=== PATIENT | female | born 1950 | race Caucasian/White ===

== ENCOUNTER 2017-07-07 01:16 | Inpatient (IN) | payer OTHER ==
[~2017-07-07] VITALS: Ht 172.7 cm; Wt 91.0 kg
[2017-07-07 01:58] LABS: BASOPHILS # (AUTO) 0.08 K/uL (0.00-0.20); BASOPHILS % (AUTO) 0.9 % (0.0-2.0); EOSINOPHILS % (AUTO) 2.35 % (1.0-6.0); HEMATOCRIT 49.2 % (36-46); LYMPHOCYTES # (AUTO) 2.3 K/uL (1.0-4.8); LYMPHOCYTES % (AUTO) 27.4 % (22.0-44.0); MEAN CORPUSCULAR HEMOGLOBIN 30.9 pg (26.0-34.0); MEAN CORPUSCULAR HGB CONC 32.6 G/dL (31.0-37.0); MEAN CORPUSCULAR VOLUME 95 fL (80-100); MONOCYTES # (AUTO) 0.9 K/uL (0.1-1.0); MONOCYTES % (AUTO) 10.1 % (2.0-9.0); NEUTROPHILS % (AUTO) 59.3 % (40.0-70.0); PLATELET COUNT (AUTO) 202 K/uL (150-450); RED CELL DISTRIBUTION WIDTH 15.8 % (11.5-14.5)
[2017-07-07 02:06] LABS: CREATININE 0.93 mg/dL (0.60-1.30); POTASSIUM 3.5 mmol/L (3.5-5.1)
[2017-07-07 02:12] LABS: ALBUMIN 3.2 g/dL (3.4-5.0); BILIRUBIN,TOTAL 0.6 mg/dL (0.1-1.0); TOTAL PROTEIN, SERUM 7.1 g/dL (6.4-8.2)
[2017-07-07] MEDS ORDERED: HALOPERIDOL LACTATE 5 MG/ML VIAL IVP ONE (02:30)
[2017-07-07] MEDS ORDERED: LORazepam 2 MG/ML VIAL IVP ONE (02:30)
[2017-07-07] MEDS ORDERED: DiphenhydrAMINE HCL 50 MG/ML VIAL IVP ONE (02:30)
[2017-07-07 02:58] LABS: AMPHET/METH SCREEN,URINE NEGATIVE (NEGATIVE); BARBITURATE SCREEN, URINE NEGATIVE (NEGATIVE); BENZODIAZEPINES SCREEN,URINE NEGATIVE (NEGATIVE); CANNABINOID SCREEN,URINE NEGATIVE (NEGATIVE); COCAINE SCREEN,URINE NEGATIVE (NEGATIVE); METHADONE SCREEN, URINE NEGATIVE (NEGATIVE); OPIATE SCREEN,URINE NEGATIVE (NEGATIVE)
[2017-07-07 03:00] LABS: PHENCYCLIDINE SCREEN,URINE NEGATIVE (NEGATIVE)
[2017-07-07] MEDS ORDERED: OLANZapine 5 MG RAPDIS TABLET PO PRN (03:00)
[2017-07-07 03:34] LABS: APPEARANCE,URINE CLOUDY (CLEAR); GLUCOSE, URINE (UA) NEGATIVE (NEGATIVE); KETONES,URINE >=80 mg/dL (NEGATIVE); LEUKOCYTE ESTERASE ,URINE SMALL (NEGATIVE); NITRATE,URINE NEGATIVE (NEGATIVE); OCCULT BLOOD,URINE NEGATIVE (NEGATIVE); PROTEIN,URINE NEGATIVE (NEGATIVE); UROBILINOGEN,URINE 0.2 mg/dL (<=1.0)
[2017-07-07 03:35] LABS: BILIRUBIN,URINE PRELIM. POSITIVE (NEGATIVE)
[2017-07-07 03:45] LABS: CHOL/HDL RATIO 4.1 (3.9-5.7); THYROID STIMULATING HORMONE 5.28 uIU/mL (0.36-3.74)
[2017-07-07 03:52] LABS: BACTERIA,URINE Rare /HPF (None Seen); RBC,URINE 0-2 /HPF (0-2); SQUAMOUS EPITHELIAL CELL,UR Few /LPF (None Seen)
[2017-07-07 03:56] VITALS: BP 119/79
[2017-07-07] MEDS: LEVOFLOXACIN 250 MG TABLET PO SCH (08:06)
[2017-07-07 09:33] VITALS: BP 100/56
[2017-07-07] MEDS ORDERED: GuaiFENesin/D-METHORPHAN [SUGAR-FREE] 200-20MG/10 ML SYRUP UDCUP PO PRN (11:00)
[2017-07-07] MEDS ORDERED: MAG HYDROX/AL HYDROX/SIMETH ES 30 ML SUSPENSION UDCUP PO PRN (11:00)
[2017-07-07] MEDS ORDERED: MAGNESIUM HYDROXIDE SUSPENSION 30 ML UDCUP PO PRN (11:00)
[2017-07-07] MEDS ORDERED: TUBERCULIN, PURIFIED PROTEIN DERIVATIVE 5 TU/0.1 ML SYG ID ONE (11:00)
[2017-07-07] MEDS ORDERED: HydrOXYzine PAMOATE 50 MG CAPSULE PO PRN (11:00)
[2017-07-07] MEDS ORDERED: LOPERAMIDE HCL 2 MG CAPSULE PO PRN (11:00)
[2017-07-07] MEDS ORDERED: PROMETHAZINE HCL 25 MG TABLET PO PRN (11:00)
[2017-07-07] MEDS: THIAMINE HCL 100 MG TABLET PO SCH (16:58)
[2017-07-07] MEDS: LORazepam 2 MG TABLET PO PRN (18:27)
[2017-07-07 19:00] VITALS: BP 103/58
[2017-07-07] MEDS: MIRTAZAPINE 15 MG TABLET PO SCH (20:24)
[2017-07-07] MEDS ORDERED: OLANZapine 5 MG RAPDIS TABLET PO SCH (21:00)
[2017-07-07] MEDS: ZOLPIDEM TARTRATE 10 MG TABLET PO PRN (21:51)
[2017-07-08 02:57] VITALS: BP 124/79
[2017-07-08 08:05] VITALS: BP 99/59
[2017-07-08] MEDS: LEVOFLOXACIN 250 MG TABLET PO SCH (08:47)
[2017-07-08] MEDS: FLUoxetine HCL 20 MG CAPSULE PO SCH (08:47)
[2017-07-08] MEDS: FOLIC ACID 1 MG TABLET PO SCH (08:47)
[2017-07-08] MEDS: THIAMINE HCL 100 MG TABLET PO SCH ×2 (08:48→16:43)
[2017-07-08] MEDS: MULTIVITAMINS WITH MINERALS, THERAPEUTIC TABLET PO SCH (08:48)
[2017-07-08 14:35] VITALS: BP 106/75
[2017-07-08 17:20] VITALS: BP 100/63
[2017-07-08] MEDS: MIRTAZAPINE 15 MG TABLET PO SCH (20:23)
[2017-07-08] MEDS ORDERED: OLANZapine 10 MG RAPDIS TABLET PO SCH (21:00)
[2017-07-08] MEDS: ZOLPIDEM TARTRATE 10 MG TABLET PO PRN (22:08)
[2017-07-09] MEDS: MULTIVITAMINS WITH MINERALS, THERAPEUTIC TABLET PO SCH (08:28)
[2017-07-09] MEDS: THIAMINE HCL 100 MG TABLET PO SCH ×2 (08:28→16:33)
[2017-07-09] MEDS: FLUoxetine HCL 20 MG CAPSULE PO SCH (08:29)
[2017-07-09] MEDS: LEVOFLOXACIN 250 MG TABLET PO SCH (08:29)
[2017-07-09] MEDS: FOLIC ACID 1 MG TABLET PO SCH (08:29)
[2017-07-09 08:50] VITALS: BP 110/73
[2017-07-09] MEDS ORDERED: PALIPERIDONE PALMITATE 234 MG/1.5 ML SYRINGE IM ONE (15:00)
[2017-07-09] MEDS ORDERED: PALIPERIDONE 3 MG ER TABLET PO PRN (15:00)
[2017-07-09 16:00] VITALS: BP 111/61
[2017-07-09] MEDS ORDERED: PALIPERIDONE 3 MG ER TABLET PO SCH (21:00)
[2017-07-09] MEDS: MIRTAZAPINE 15 MG TABLET PO SCH (21:51)
[2017-07-09] MEDS: ZOLPIDEM TARTRATE 10 MG TABLET PO PRN (21:52)
[2017-07-10 06:31] VITALS: BP 106/61
[2017-07-10] MEDS: MULTIVITAMINS WITH MINERALS, THERAPEUTIC TABLET PO SCH (08:42)
[2017-07-10] MEDS: LEVOFLOXACIN 250 MG TABLET PO SCH (08:43)
[2017-07-10] MEDS: THIAMINE HCL 100 MG TABLET PO SCH ×2 (08:43→16:25)
[2017-07-10] MEDS: FLUoxetine HCL 20 MG CAPSULE PO SCH (08:43)
[2017-07-10] MEDS: FOLIC ACID 1 MG TABLET PO SCH (08:44)
[2017-07-10 08:46] VITALS: BP 115/67
[2017-07-10 17:00] VITALS: BP 103/61
[2017-07-10] MEDS: MIRTAZAPINE 15 MG TABLET PO SCH (20:24)
[2017-07-10] MEDS: ZOLPIDEM TARTRATE 10 MG TABLET PO PRN (21:51)
[2017-07-11 06:40] VITALS: BP 104/55
[2017-07-11] MEDS: MULTIVITAMINS WITH MINERALS, THERAPEUTIC TABLET PO SCH (09:45)
[2017-07-11] MEDS: FOLIC ACID 1 MG TABLET PO SCH (09:45)
[2017-07-11] MEDS: LEVOFLOXACIN 250 MG TABLET PO SCH (09:46)
[2017-07-11] MEDS: FLUoxetine HCL 20 MG CAPSULE PO SCH (09:46)
[2017-07-11] MEDS: THIAMINE HCL 100 MG TABLET PO SCH ×2 (09:46→16:25)
[2017-07-11 11:07] VITALS: BP 109/73
[2017-07-11] MEDS: LORazepam 2 MG TABLET PO PRN (12:25)
[2017-07-11 17:15] VITALS: BP 110/65
[2017-07-11] MEDS: MIRTAZAPINE 15 MG TABLET PO SCH (20:23)
[2017-07-11] MEDS: ZOLPIDEM TARTRATE 10 MG TABLET PO PRN (21:45)
[2017-07-12] MEDS: FOLIC ACID 1 MG TABLET PO SCH (08:49)
[2017-07-12] MEDS: MULTIVITAMINS WITH MINERALS, THERAPEUTIC TABLET PO SCH (08:49)
[2017-07-12] MEDS: THIAMINE HCL 100 MG TABLET PO SCH ×2 (08:49→15:52)
[2017-07-12] MEDS: FLUoxetine HCL 20 MG CAPSULE PO SCH (08:49)
[2017-07-12 09:50] VITALS: BP 130/81
[2017-07-12] MEDS: LORazepam 2 MG TABLET PO PRN ×2 (12:42→17:31)
[2017-07-12 19:35] VITALS: BP 111/65
[2017-07-12] MEDS: MIRTAZAPINE 15 MG TABLET PO SCH (20:09)
[2017-07-12] MEDS: ZOLPIDEM TARTRATE 10 MG TABLET PO PRN (21:37)
[2017-07-13] MEDS ORDERED: PALIPERIDONE PALMITATE 156 MG/ML SYRINGE IM ONE (09:00)
[2017-07-13] MEDS: MULTIVITAMINS WITH MINERALS, THERAPEUTIC TABLET PO SCH (09:15)
[2017-07-13] MEDS: THIAMINE HCL 100 MG TABLET PO SCH ×2 (09:15→16:45)
[2017-07-13] MEDS: FLUoxetine HCL 20 MG CAPSULE PO SCH (09:15)
[2017-07-13] MEDS: FOLIC ACID 1 MG TABLET PO SCH (09:15)
[2017-07-13] MEDS: LORazepam 2 MG TABLET PO PRN ×2 (09:54→18:12)
[2017-07-13 10:29] VITALS: BP 140/81
[2017-07-13 16:30] VITALS: BP 112/60
[2017-07-13] MEDS: MIRTAZAPINE 15 MG TABLET PO SCH (21:12)
[2017-07-13] MEDS: ZOLPIDEM TARTRATE 10 MG TABLET PO PRN (22:06)
[2017-07-14 09:37] VITALS: BP 108/55
[2017-07-14] MEDS: MULTIVITAMINS WITH MINERALS, THERAPEUTIC TABLET PO SCH (12:11)
[2017-07-14] MEDS: FLUoxetine HCL 20 MG CAPSULE PO SCH (12:12)
[2017-07-14] MEDS: FOLIC ACID 1 MG TABLET PO SCH (12:12)
[2017-07-14] MEDS: THIAMINE HCL 100 MG TABLET PO SCH ×2 (12:12→16:04)
[2017-07-14] MEDS: LORazepam 2 MG TABLET PO PRN ×2 (14:06→18:38)
[2017-07-14 19:47] VITALS: BP 109/66
[2017-07-14] MEDS: MIRTAZAPINE 30 MG TABLET PO SCH (20:35)
[2017-07-14] MEDS: ZOLPIDEM TARTRATE 10 MG TABLET PO PRN (21:55)
[2017-07-15] MEDS: FLUoxetine HCL 20 MG CAPSULE PO SCH (08:21)
[2017-07-15] MEDS: THIAMINE HCL 100 MG TABLET PO SCH ×2 (08:21→16:50)
[2017-07-15] MEDS: MULTIVITAMINS WITH MINERALS, THERAPEUTIC TABLET PO SCH (08:21)
[2017-07-15] MEDS: FOLIC ACID 1 MG TABLET PO SCH (08:21)
[2017-07-15 09:25] VITALS: BP 166/92
[2017-07-15] MEDS: LORazepam 2 MG TABLET PO PRN (11:40)
[2017-07-15] MEDS ORDERED: GABAPENTIN 300 MG CAPSULE PO PRN (13:30)
[2017-07-15] MEDS: GABAPENTIN 300 MG CAPSULE PO SCH ×2 (16:50→21:00)
[2017-07-15 17:07] VITALS: BP 125/80
[2017-07-15] MEDS: MIRTAZAPINE 30 MG TABLET PO SCH (21:00)
[2017-07-15] MEDS: ZOLPIDEM TARTRATE 10 MG TABLET PO PRN (21:52)
[2017-07-16] VITALS (14 sets, daily range): BP systolic 109–153; BP diastolic 70–97
[2017-07-16] MEDS: FLUoxetine HCL 20 MG CAPSULE PO SCH (09:20)
[2017-07-16] MEDS: FOLIC ACID 1 MG TABLET PO SCH (09:20)
[2017-07-16] MEDS: MULTIVITAMINS WITH MINERALS, THERAPEUTIC TABLET PO SCH (09:21)
[2017-07-16] MEDS: GABAPENTIN 300 MG CAPSULE PO SCH ×3 (09:21→16:58)
[2017-07-16] MEDS: THIAMINE HCL 100 MG TABLET PO SCH ×2 (09:21→16:58)
[2017-07-16] MEDS: ACETAMINOPHEN 325 MG TABLET PO PRN ×3 (10:06→20:36)
[2017-07-16] MEDS ORDERED: PALI234D IM (11:05)
[2017-07-16] MEDS ORDERED: FLUO-191 PO (11:05)
[2017-07-16] MEDS ORDERED: GABA-531 PO (16:22)
[2017-07-16] MEDS ORDERED: HYD25 PO (16:22)
[2017-07-16] MEDS ORDERED: GABAPENTIN 300 MG CAPSULE PO PRN (17:30)
[2017-07-16] MEDS: HydrOXYzine HCL 25 MG TABLET PO SCH (17:31)
[2017-07-16] MEDS ORDERED: MIRTAZAPINE 30 MG TABLET PO SCH (21:00)
[2017-07-16] MEDS: ZOLPIDEM TARTRATE 10 MG TABLET PO PRN (21:50)
[2017-07-17] MEDS: ACETAMINOPHEN 325 MG TABLET PO PRN (05:35)
[2017-07-17 05:40] VITALS: BP 132/76
[2017-07-17] MEDS: GABAPENTIN 300 MG CAPSULE PO SCH (07:06)
[2017-07-17] MEDS: HydrOXYzine HCL 25 MG TABLET PO SCH (07:07)
[2017-07-17] MEDS ORDERED: FLUoxetine HCL 20 MG CAPSULE PO SCH (09:00)
[2017-07-17 10:05] VITALS: BP 124/70
[2017-07-17] MEDS: FOLIC ACID 1 MG TABLET PO SCH (10:16)
[2017-07-17] MEDS: THIAMINE HCL 100 MG TABLET PO SCH (10:16)
[2017-07-17] MEDS: MULTIVITAMINS WITH MINERALS, THERAPEUTIC TABLET PO SCH (10:16)
[2017-07-17] MEDS ORDERED: MIRT15 PO (10:23)
[2017-07-17] MEDS ORDERED: MIRTAZAPINE 15 MG TABLET PO SCH (21:00)
== END 2017-07-17 11:20 | disposition home or self-care (01) | DRG 885 ==
LOC: EMS 01:17 → 3EX 03:21
PROVIDERS: ADMIT Psychiatry & Neurology Psychiatry; ATTEND Psychiatry & Neurology Psychiatry
PROC: 0CQ1XZZ Repair Lower Lip, External Approach (ICD-10-PCS; principal; 2017-07-16)
DX: F33.9 Major depressive disorder, recurrent, unspecified (principal); E03.9 Hypothyroidism, unspecified; Z91.19 Patient's noncompliance with other medical treatment and regimen; S01.511A Laceration without foreign body of lip, initial encounter; S00.33XA Contusion of nose, initial encounter; N39.0 Urinary tract infection, site not specified; W18.30XA Fall on same level, unspecified, initial encounter; F41.1 Generalized anxiety disorder; Y93.89 Activity, other specified; Y92.89 Other specified places as the place of occurrence of the external cause
CPT/HCPCS: 70140; 84443; 93005; 96374; 96375; 99285; G0480; J1200; J1630; J2060

== ENCOUNTER 2025-02-23 15:20 | Inpatient (IN) | payer MEDICARE, MEDICAID ==
[~2025-02-23] VITALS: Ht 172.7 cm; Wt 91.9 kg
[~2025-02-23 15:20] MED LIST: ALEN70TA65 PO; AMLO2.5T96 PO; ATOR40TA28 PO; BUDE10.26 IH; DEUT12TA PO; DIVA-112 PO; LOXA25CA13 PO; METF-1211 PO; METO25 PO; MULT-711 PO; QUET200T PO; ROPI2TAB26 PO; TRAZ-257 PO
[2025-02-23 15:59] LABS: PLATELET COUNT (AUTO) 280 K/uL (150-450); RED BLOOD CELL COUNT(AUTO) 4.27 MIL/uL (4.00-5.20); RED CELL DISTRIBUTION WIDTH 15.8 % (11.5-14.5); WHITE BLOOD COUNT (AUTO) 10.0 K/uL (4.5-11.0)
[2025-02-23 16:07] LABS: CALCIUM, TOTAL 8.7 mg/dL (8.8-10.5); CREATININE 0.54 mg/dL (0.60-1.30); GLOMERULAR FILTR. RATE CALC > 60 mL/min (>60); GLUCOSE,RANDOM 94 mg/dL (70-110); SODIUM SERUM 138 mmol/L (136-145); UREA NITROGEN, BLOOD 9 mg/dL (7-18)
[2025-02-23 16:13] LABS: ALCOHOL, BLOOD (SERUM) < 3 mg/dL (0-10)
[2025-02-23 16:16] LABS: TROPONIN I-HIGH SENSITIVITY 4 ng/L (<51)
[2025-02-23 16:17] LABS: ASPARTATE AMINOTRANSFERASE 42 U/L (15-37); TOTAL PROTEIN, SERUM 6.6 g/dL (6.4-8.2)
[2025-02-23 16:52] LABS: COVID AG,FIA SOURCE NASAL SWAB
[2025-02-23 17:11] LABS: SARS-COV2 (COVID) ANTIGEN,FIA Negative (Negative)
[2025-02-23 17:12] LABS: INFLUENZA TYPE A NEGATIVE FOR TYPE A (NEGATIVE); INFLUENZA TYPE B NEGATIVE FOR TYPE B (NEGATIVE)
[2025-02-23 18:57] VITALS: PULSE 64; RESP 24; O2SAT 97
[2025-02-23] MEDS: ALBUTEROL SULFATE 2.5 MG/0.5 ML NEB SOLUTION NEB ONE (18:57)
[2025-02-23] MEDS: IPRATROPIUM BROMIDE 0.5 MG/2.5 ML NEB SOLUTION NEB ONE (18:57)
[2025-02-23 19:12] VITALS: PULSE 61; RESP 22; O2SAT 100
[2025-02-23] MEDS ORDERED: MAGNESIUM HYDROXIDE SUSPENSION 30 ML UDCUP PO PRN (21:00)
[2025-02-23] MEDS ORDERED: ZOLPIDEM TARTRATE 5 MG TABLET PO PRN (21:00)
[2025-02-23] MEDS ORDERED: BISACODYL 10 MG RECTAL RECTAL SUPPOSITORY PR PRN (21:00)
[2025-02-23] MEDS ORDERED: ACETAMINOPHEN 325 MG TABLET PO PRN (21:00)
[2025-02-23] MEDS ORDERED: MORPHINE SULFATE 2 MG/ML SYRINGE IVP PRN (21:00)
[2025-02-23] MEDS ORDERED: ONDANSETRON HCL 4 MG/2 ML VIAL IVP PRN (21:00)
[2025-02-23] MEDS: LOXAPINE SUCCINATE 25 MG CAPSULE PO SCH (21:42)
[2025-02-23] MEDS: DIVALPROEX SODIUM 500 MG DR TABLET PO SCH (21:42)
[2025-02-23 22:01] LABS: APPEARANCE,URINE CLEAR (CLEAR); GLUCOSE, URINE (UA) NEGATIVE (NEGATIVE); LEUKOCYTE ESTERASE ,URINE NEGATIVE (NEGATIVE); NITRATE,URINE NEGATIVE (NEGATIVE); OCCULT BLOOD,URINE NEGATIVE (NEGATIVE); PH,URINE DRUG SCREEN 5.5 (5.0-8.0); SPECIFIC GRAVITIY, URINE 1.009 (1.003-1.030)
[2025-02-23 22:08] LABS: AMPHET/METH SCREEN,URINE NEGATIVE (NEGATIVE); BARBITURATE SCREEN, URINE NEGATIVE (NEGATIVE); CANNABINOID SCREEN,URINE NEGATIVE (NEGATIVE); COCAINE SCREEN,URINE NEGATIVE (NEGATIVE); METHADONE SCREEN, URINE NEGATIVE (NEGATIVE)
[2025-02-23 22:10] LABS: ALCOHOL, URINE DRUG SCREEN NEGATIVE (NEGATIVE)
[2025-02-23 22:17] VITALS: BP 124/58; PULSE 75; RESP 18; TEMP 98.3; O2SAT 97
[2025-02-23] MEDS ORDERED: LORA0.5T20 PO (22:26)
[2025-02-23] MEDS ORDERED: ACET-66 PO (22:26)
[2025-02-23] MEDS ORDERED: PRED5TAB2 PO (22:26)
[2025-02-23] MEDS ORDERED: TRAZ-184 PO (22:26)
[2025-02-23] MEDS ORDERED: PERCT PO (22:30)
[2025-02-23] MEDS ORDERED: ROPI2TAB26 PO (22:34)
[2025-02-23] MEDS: DOCUSATE SODIUM 100 MG CAPSULE PO SCH (22:47)
[2025-02-23] MEDS: HEPARIN SODIUM,PORCINE 5,000 UNITS/ML VIAL SQ SCH (22:53)
[2025-02-23] MEDS: HYDROCODONE/ACETAMINOPHEN 5-325 MG TABLET PO PRN (22:54)
[2025-02-24] MEDS ORDERED: LORA0.5T20 PO (00:43)
[2025-02-24] MEDS: FLUTICASONE/VILANTEROL 200-25 MCG/INH INHALER [14] IH SCH (08:54)
[2025-02-24] MEDS: ATORVASTATIN CALCIUM 40 MG TABLET PO SCH (08:55)
[2025-02-24 08:56] VITALS: BP 109/50; PULSE 83; RESP 18; TEMP 98.1; O2SAT 100
[2025-02-24] MEDS: PANTOPRAZOLE SODIUM 40 MG DR TABLET PO SCH (08:56)
[2025-02-24] MEDS ORDERED: METOPROLOL TARTRATE 25 MG TABLET PO SCH (09:00)
[2025-02-24] MEDS ORDERED: ALBUTEROL SULFATE 2.5 MG/0.5 ML NEB SOLUTION NEB PRN (10:15)
[2025-02-24] MEDS ORDERED: IPRATROPIUM BROMIDE 0.5 MG/2.5 ML NEB SOLUTION NEB PRN (10:15)
[2025-02-24] MEDS: DEXTROSE 50%-WATER 25 GM/50 ML SYRINGE IVP PRN (11:19)
[2025-02-24 15:51] VITALS: BP 134/65; PULSE 84; RESP 18; TEMP 99.1; O2SAT 100
[2025-02-24 16:11] LABS: GLUCOMETER DEV NAME(LOC) 6N.1C; GLUCOSE,POINT OF CARE 62 MG/DL (70-110)
[2025-02-24 16:11] LABS: GLUCOMETER DEV NAME(LOC) 6N.1C; GLUCOSE,POINT OF CARE 106 MG/DL (70-110)
[2025-02-24] MEDS: DEXTROSE 5%-0.45% SODIUM CHL 1,000 ML IV ONE (18:23)
[2025-02-24 19:01] LABS: GLUCOMETER DEV NAME(LOC) 4E.2; GLUCOSE,POINT OF CARE 67 MG/DL (70-110)
[2025-02-24 20:01] LABS: GLUCOMETER DEV NAME(LOC) 4E.2; GLUCOSE,POINT OF CARE 178 MG/DL (70-110)
[2025-02-24 20:26] VITALS: BP 114/64; PULSE 69; RESP 18; TEMP 97.5; O2SAT 96
[2025-02-25] MEDS: INSULIN LISPRO 100 UNITS/ML SQ PRN (06:34)
[2025-02-25 06:41] LABS: GLUCOMETER DEV NAME(LOC) 6N.1C; GLUCOSE,POINT OF CARE 158 MG/DL (70-110)
[2025-02-25 08:19] VITALS: BP 125/80; PULSE 77; RESP 17; TEMP 97.7; O2SAT 98
[2025-02-25 15:55] VITALS: BP 116/65; PULSE 90; RESP 18; TEMP 97.5; O2SAT 97
[2025-02-25 16:07] LABS: PLATELET COUNT (AUTO) 274 K/uL (150-450); RED BLOOD CELL COUNT(AUTO) 4.61 MIL/uL (4.00-5.20); RED CELL DISTRIBUTION WIDTH 15.6 % (11.5-14.5); WHITE BLOOD COUNT (AUTO) 10.2 K/uL (4.5-11.0)
[2025-02-25 16:14] LABS: CALCIUM, TOTAL 9.3 mg/dL (8.8-10.5); CREATININE 0.78 mg/dL (0.60-1.30); GLOMERULAR FILTR. RATE CALC > 60 mL/min (>60); GLUCOSE,RANDOM 115 mg/dL (70-110); SODIUM SERUM 142 mmol/L (136-145); UREA NITROGEN, BLOOD 12 mg/dL (7-18)
[2025-02-26 13:11] LABS: GLUCOMETER DEV NAME(LOC) 6N.1C; GLUCOSE,POINT OF CARE 165 MG/DL (70-110)
== END 2025-02-25 18:30 | disposition home or self-care (01) | DRG 189 ==
LOC: EMS 15:20 → EDH 16:53 → 6S 22:09
PROVIDERS: ADMIT Internal Medicine; ATTEND Internal Medicine
PROC: GZ56ZZZ Individual Psychotherapy, Supportive (ICD-10-PCS; principal; 2025-02-24)
PROC: GZ58ZZZ Individual Psychotherapy, Cognitive-Behavioral (ICD-10-PCS; 2025-02-24)
DX: J96.20 Acute and chronic respiratory failure, unspecified whether with hypoxia or hypercapnia (principal); J44.1 Chronic obstructive pulmonary disease with (acute) exacerbation; F25.0 Schizoaffective disorder, bipolar type; I10 Essential (primary) hypertension; E66.9 Obesity, unspecified; E78.5 Hyperlipidemia, unspecified; E11.9 Type 2 diabetes mellitus without complications; Z20.822 Contact with and (suspected) exposure to COVID-19; Z68.30 Body mass index [BMI] 30.0-30.9, adult
CPT/HCPCS: 71045; 80048; 80076; 80164; 80307; 81003; 82962; 83880; 84484; 85025; 87804; 93005; 94640; 94760; 99285; G0480; J1644; 36415-L1; 36415-TC; J7613